=== PATIENT | male | born 1960 | race African-American/Black ===

== ENCOUNTER 2023-07-28 20:45 | Emergency (ER) | payer OTHER, SELFPAY ==
--- NOTE | ~2023-07-28 | XR_ITS ---
EXAMINATION: XR chest 2V Exam Date/Time: 07/28/2023 21:05 CDT HISTORY: chest pain Comparison: None. RESULT: Lines, tubes, and devices: Left chest pacer with intact lead. Lungs and pleura: Clear. Cardiomediastinal silhouette: Calcified mediastinal lymph nodes. Other: No acute osseous or upper abdominal finding. IMPRESSION: No acute cardiopulmonary process. Reviewed, dictated and finalized at location K.
--- NOTE | ~2023-07-28 | CT_ITS ---
EXAMINATION: CT abdomen pelvis w con DATE: 07/29/2023 00:04 INDICATION: Abdominal pain. TECHNIQUE: Computed tomography (CT) of the abdomen and pelvis was performed with 100 mL Omnipaque 350 intravenous contrast. Automated exposure control and iterative reconstruction technique were employe d. The dose-length product was 430.73 mGy-cm. COMPARISON: None. FINDINGS: The visualized portions of the lung bases demonstrate mild atelectasis. No pleural effusion . The heart size is normal. There is a pacer wire in right ventricle. No pericardial effusion. The li jaxon, gallbladder, spleen, pancreas, adrenal glands, and kidneys are normal. There is diverticulosis o f the colon without evidence of diverticulitis. The appendix is not visualized. There is a small harjit l anastomosis in the right abdomen. There is calcified atherosclerosis of the aorta and many of the o ther arteries. There are no pathologically enlarged lymph nodes. There is no free intraperitoneal flu id. There is moderate lumbar spondylosis. IMPRESSION: 1. No etiology for the patient's symptoms. Reviewed, dictated and finalized at location E.
[2023-07-28 20:44] VITALS: BP 168/80; PULSE 56; RESP 14; TEMP 37; O2SAT 100
[2023-07-28 20:52] VITALS: PULSE 57; O2SAT 100
--- NOTE | 2023-07-28 20:53 | ECG_ITS ---
Test Date: 2023-07-28 20:59:31 Measurements Intervals [place] Rate: 56 P: 76 MO: 196 QRS: -75 QRSD: 131 T: -89 QT: 428 QTc: 415 Interpretive Statements SINUS BRADYCARDIA INTRAVENTRICULAR CONDUCTION DELAY [130+ ms QRS DURATION] LEFT VENTRICULAR HYPERTROPHY AND ST-T CHANGE [VOLTAGE CRITERIA PLUS ST/T ABNORMALITY] POSSIBLE SEPTAL MYOCARDIAL INFARCTION , OF INDETERMINATE AGE [30 ms Q WAVE IN V1/V2] No previous ECG available for comparison Electronically Signed On 07-29-2023 12:05:08 CDT by Eloy Coates M.D.
[2023-07-28 21:10] LABS: Basophils Percent Auto 0.4 % (0.2-1.2); Eosinophils Absolute Auto 0.2 K/mm3 (0-0.3); Eosinophils Percent Auto 1.9 % (0-4.4); Hematocrit 41.1 % (42.0-52.0); Hemoglobin 13.7 g/dL (14.0-18.0); Immature Granulocyte Absolute 0.01 K/mm3 (0.00-0.031); Immature Granulocyte Percent A 0.1 % (0-0.5); Lymphocytes Absolute Auto 3.38 K/mm3 (0.9-3.2); Lymphocytes Percent Auto 43.8 % (18.3-44.2); Mean Corpuscular HGB Conc 33.3 g/dl (32-36); Mean Corpuscular Hemoglobin 30.2 pg (26-34); Mean Corpuscular Volume 90.7 fl (80-100); Mean Platelet Volume 9.4 fl (7.4-10.4); Monocytes Absolute Auto 0.9 K/mm3 (0.1-0.6); Monocytes Percent Auto 11.3 % (2.6-8.5); Neutrophils Absolute Auto 3.3 K/mm3 (1.3-6.7); Neutrophils Percent Auto 42.5 % (45.5-73.1); Platelet Count Result 266 k/mm3 (150-375); Red Blood Count 4.53 M/mm3 (4.6-6.20); Red Cell Distribution Width 14.5 % (11.5-14.5); White Blood Count 7.7 K/mm3 (4.5-10.0)
[2023-07-28 21:29] LABS: Alanine Aminotransferase 27 U/L (6-50); Albumin Level 3.5 g/dL (3.5-5.1); Alkaline Phosphatase 100 U/L (38-126); Anion Gap 3 mmol/L (4-12); Aspartate Amino Transferase 87 U/L (17-59); Bilirubin,Total 0.3 mg/dL (0.2-1.3); Blood Urea Nitrogen 15 mg/dL (9-20); Calcium 9.1 mg/dL (8.4-10.2); Carbon Dioxide 32 mmol/L (22-30); Chloride 106 mmol/L (98-107); Estimated CRCL calculation 80 ml/min; Estimated Glomerular Filt Rate > 60; Glucose 90 mg/dL (65-110); Lipase 308 U/L (23-300); Potassium 3.9 mmol/L (3.4-5.0); Sodium 141 mmol/L (137-145)
[2023-07-28 21:31] LABS: INR 0.9; Prothrombin Time 12.9 Seconds (11.1-14.7)
[2023-07-28 21:39] LABS: Troponin I < 0.012 ng/mL (0.000-0.034)
[2023-07-28 22:54] VITALS: BP 137/74; PULSE 56; RESP 14; O2SAT 100
[2023-07-28] MEDS: ONDANSETRON INJ 4 MG/2 ML VIAL IV PUSH (23:43)
[2023-07-28] MEDS: MORPHINE SULFATE (*CRX) 4 MG/ML INJ IV PUSH (23:43)
--- NOTE | 2023-07-29 00:23 | ECG_ITS ---
Test Date: 2023-07-29 00:25:59 Measurements Intervals [place] Rate: 59 P: 76 [place]: 207 QRS: -75 QRSD: 127 T: 270 QT: 433 QTc: 430 Interpretive Statements SINUS BRADYCARDIA INTRAVENTRICULAR CONDUCTION DELAY PROBABLE SEPTAL MYOCARDIAL INFARCTION , OF INDETERMINATE AGE [35 ms Q WAVE IN V1/V2] LEFT VENTRICULAR HYPERTROPHY AND ST-T CHANGE [VOLTAGE CRITERIA PLUS ST/T ABNORMALITY] Compared to ECG 07/28/2023 20:59:31 NO SIGNIFICANT CHANGES Electronically Signed On 07-29-2023 12:07:29 CDT by Eloy Coates M.D.
[2023-07-29 00:44] LABS: Troponin I < 0.012 ng/mL (0.000-0.034)
[2023-07-29 01:38] VITALS: BP 124/73; PULSE 58; RESP 18; O2SAT 100
--- NOTE | 2023-07-29 02:13 | ED.GENADULT ---
HPI - General Adult General Chief complaint: Chest Pain Stated complaint: SUBSTERNAL CP, NONRADIATING Time Seen by Provider: 07/28/23 23:27 History of Present Illness HPI narrative: patient is a 63-year-old gentleman who presents emergency department with chief complaint of chest pain and abdominal pain. The patient reports he has been having pain since about 730 this morning reports that has been pretty well constant patient reports prior history of HI prior history of stroke hypertension reports he has a pacemaker reports he has also had a bowel obstruction before in the past patient reports that the pain has been pretty well constant all day reports that has not improved by anything and reports not worsened by anything. Related Data Allergies Allergy/AdvReac Type Severity Reaction Status Date / Time No Known Allergies Allergy Verified 07/28/23 21:03 Review of Systems Review of Systems: A 10 system review of systems was completed on the patient and is negative except for what is stated in the HPI. Nursing and ancillary documentation was reviewed. Exam Narrative: GENERAL: Well-appearing, well-nourished, and in no acute distress. HEAD: Normocephalic, atraumatic. EYES: PERRLA and EOMI. ENT: Nares clear, no rhinorrhea or epistaxis. Mucous membranes moist. NECK: Supple. CHEST: Clear to auscultation. No respiratory distress. HEART: Regular rate and rhythm. No murmur heard. Normal peripheral pulses. ABDOMEN: Soft, diffusely tender to palpation, midline scar, nondistended, normal active bowel sounds. EXTREMITIES: Normal range of motion. No edema. SKIN: Warm, dry, no rash. NEURO: No focal deficits. Alert and oriented x3. PSYCH: Normal mood and affect. Course Vital Signs Vital signs: Vital Signs Temperature 37.0 C 07/28/23 20:44 Pulse Rate 56 L 07/28/23 20:44 Respiratory Rate 14 07/28/23 20:44 Blood Pressure 168/80 H 07/28/23 20:44 Pulse Oximetry 100 07/28/23 20:44 Oxygen Delivery Room Air 07/28/23 20:44 Temperature 37.0 C 07/28/23 20:44 Pulse Rate 58 L 07/29/23 01:38 Respiratory Rate 18 07/29/23 01:38 Blood Pressure 124/73 07/29/23 01:38 Pulse Oximetry 100 07/29/23 01:38 Oxygen Delivery Room Air 07/28/23 20:52 Medical Decision Making [facility] Narrative Medical decision making narrative: differential diagnosis includes ACS, bowel obstruction, pancreatitis, diverticulitis, colitis, noncardiac chest pain, unstable angina, stable angina EKG showed no acute ischemic changes. Lipase was slightly elevated at 308 CBC was obtained which showed white count 7.7 hemoglobin is 13.7 electrolytes were within normal limits AST was elevated 87 ALT was normal at 27 bilirubin 0.3 troponin is less than 0.012 for the 0 [address] scan of the abdomen pelvis showed no acute intra-abdominal pathology but did show evidence of constipation there is no evidence of bowel obstruction no evidence of appendicitis Vital Signs Vital Signs: Vital Signs Temperature 37.0 C 07/28/23 20:44 Pulse Rate 56 L 07/28/23 20:44 Respiratory Rate 14 07/28/23 20:44 Blood Pressure 168/80 H 07/28/23 20:44 Pulse Oximetry 100 07/28/23 20:44 Oxygen Delivery Room Air 07/28/23 20:44 Temperature 37.0 C 07/28/23 20:44 Pulse Rate 58 L 07/29/23 01:38 Respiratory Rate 18 07/29/23 01:38 Blood Pressure 124/73 07/29/23 01:38 Pulse Oximetry 100 07/29/23 01:38 Oxygen Delivery Room Air 07/28/23 20:52 Lab Data 07/28/23 20:57 07/28/23 20:57 Labs: Lab Results 07/28/23 07/29/23 07/29/23 Range/Units 20:57 00:14 02:45 WBC 7.7 (4.5-10.0) K/mm3 RBC 4.53 L (4.6-6.20) M/mm3 Hgb 13.7 L (14.0-18.0) g/dL Hct 41.1 L (42.0-52.0) % MCV 90.7 (80-100) fl MCH 30.2 (26-34) pg MCHC 33.3 (32-36) g/dl RDW 14.5 (11.5-14.5) % Plt Count 266 (150-375) k/mm3 MPV 9.4 (7.4-10.4) fl Immature Gran % (Aut
--- NOTE | 2023-07-29 02:42 | ECG_ITS ---
Test Date: 2023-07-29 02:44:47 Measurements Intervals [place] Rate: 58 P: 79 [place]: 202 QRS: -74 QRSD: 137 T: -89 QT: 434 QTc: 428 Interpretive Statements SINUS BRADYCARDIA INTRAVENTRICULAR CONDUCTION DELAY [130+ ms QRS DURATION] LEFT VENTRICULAR HYPERTROPHY AND ST-T CHANGE [VOLTAGE CRITERIA PLUS ST/T ABNORMALITY] POSSIBLE SEPTAL MYOCARDIAL INFARCTION , OF INDETERMINATE AGE [30 ms Q WAVE IN V1/V2] Compared to ECG 07/29/2023 00:25:59 NO SIGNIFICANT CHANGES Electronically Signed On 07-29-2023 12:07:51 CDT by Eloy Coates M.D.
[2023-07-29 03:16] LABS: Troponin I < 0.012 ng/mL (0.000-0.034)
== END 2023-07-29 04:33 ==
PROVIDERS: Emergency Provider Emergency Medicine
DX: R07.9 Chest pain, unspecified (principal); R10.9 Unspecified abdominal pain; K59.00 Constipation, unspecified
CPT/HCPCS: 36415; 71046; 74177; 80053; 83690; 84484; 85025; 85610; 85730; 93005; 96374; 96375; 99284; J2270; J2405; Q9967